=== PATIENT | male | born 1970 | race Caucasian/White ===

== ENCOUNTER 2017-11-12 09:49 | Emergency (ER) | payer OTHER ==
--- NOTE | 2017-11-12 10:01 | CPEKG ---
Heart Rate: 73 RR Interval: 822 P-R Interval: 168 QRSD Interval: 96 QT Interval: 380 QTC Interval: 419 P [place]: 8 QRS [place]: 41 T Wave [place]: 36 EKG Severity - NORMAL ECG - EKG Impression: SINUS RHYTHM Electronically Signed By: Presley Cavanaugh 12-Nov-2017 10:07:38
--- NOTE | 2017-11-12 10:07 | EDPHY ---
H & P Time Seen by Provider: 11/12/17 09:55 HPI/ROS: CHIEF COMPLAINT: Chest pain HISTORY OF PRESENT ILLNESS: Patient was brought in by a co-worker after telling her that he had central chest pain since just after 8:00 a.m. Today. Patient said it is not pleuritic or exertional, does not radiate. Located in the center of his chest and was moderate earlier but almost gone now. No recent injury or trauma. No coughing or hemoptysis. No radiation. REVIEW OF SYSTEMS: Eye: no change in vision ENT: no sore throat Cardiac: HPI no palpitations Pulmonary: no cough or SOB Abdomen: no vomiting, diarrhea, abdominal pain Musculoskeletal: no back pain or leg swelling Skin: no rash Neuro: no headache Constitutional: no fever : no urinary symptoms A comprehensive 10 point review of systems is otherwise negative aside from elements mentioned in the history of present illness. PAST MEDICAL HISTORY: Appendectomy but negative for high cholesterol diabetes or hypertension. Family history: Negative for venous thromboembolism or premature coronary disease, grand father had TN in his 60s Social history: Negative for tobacco or cocaine General Appearance: Alert and conversant, cooperative. Eyes: No scleral icterus. ENT, Mouth: Normal mucous membranes. Respiratory: Normal respiratory effort, breath sounds equal, lungs are clear to auscultation. Cardiovascular: Regular rate and rhythm. Gastrointestinal: Abdomen is soft and non tender. Neurological: Alert, face symmetric, normal motor and sensory in extremities. Skin: Warm and dry, no rashes. Musculoskeletal: No calf tenderness. Psychiatric: Not agitated. Emergency Department course/MDM: More likely muscular or inflammatory. Perc negative for PE. EKG does not show ischemic changes. Plan for chest x-ray and troponin, discharge if initial and 3 hr negative. 1142: Discussed results, heart score discussed, patient is in agreement and would like to be discharged if his 3 hr troponin is negative. Smoking Status: Never smoked Constitutional: Initial Vital Signs Temperature (C) 36.7 C 11/12/17 09:53 Heart Rate 79 11/12/17 09:53 Respiratory Rate 16 11/12/17 09:53 Blood Pressure 154/108 H 11/12/17 09:53 O2 Sat (%) 97 11/12/17 09:53 O2 Delivery Mode Room Air Allergies/Adverse Reactions: Penicillins Allergy (Verified 11/12/17 09:52) Home Medications: Medication Instructions Recorded NK [No Known Home Meds] 11/12/17 Medical Decision Making - Diagnostics EKG Interpretation: 12-lead EKG interpreted by me; official reading is in trace master. My interpretation is sinus rhythm rate 73 normal intervals and no ischemic changes. 2nd EKG at 13 7: 12-lead EKG interpreted by me; official reading is in trace master. My interpretation is normal sinus rhythm rate 69 no ischemic changes. Imaging Results: Imaging Impressions Chest X-Ray 11/12/17 10:05 Impression: Diskoid subsegmental atelectasis versus linear fibrosis at the anterior lung base. Imaging: I viewed and interpreted images myself Differential Diagnosis: Differential diagnosis considered for chest pain including but not limited to myocardial ischemia, aortic dissection, pericarditis, pulmonary embolus, chest wall pain, pleural inflammation and pulmonary infectious causes. - Data Points Laboratory Results: Laboratory Results 11/12/17 10:03 11/12/17 10:03 11/12/17 11/12/17 11/12/17 13:00 10:03 10:03 WBC 5.43 10^3/uL 10^3/uL (3.80-9.50) RBC 5.08 10^6/uL 10^6/uL (4.40-6.38) Hgb 15.7 g/dL g/dL (13.7-17.5) Hct 45.5 % % (40.0-51.0) MCV 89.6 fL fL (81.5-99.8) MCH 30.9 pg pg (27.9-34.1) MCHC 34.5 g/dL g/dL (32.4-36.7) RDW 12.7 % % (11.5-15.2) Plt Count 219 10^3/uL 10^3/uL (150-400) MPV 9.3 fL fL (8.7-11.7) Neut % (Auto) 46.4 % % (39.3-74.2) Lymph % (Auto) 39.4 % % (15.0-45.0) Stewart % (Auto) 10.7 % % (4.5-13.0) Eos % (Auto) 2.2 % % (0.6-7.6) Baso % (Auto) 1.3 % % (0.3-1.7) Nucleat RBC Rel Count 0.0 % % (0.0-0.2) Absolute Neuts (auto) 2.52 10^3/uL 10^3/uL (1.70-6.50) Absolute Lymphs (auto) 2.14 10^3/uL 10^3/uL (1.00-3.00) Absolute Monos (auto) 0.58 10^3/uL 10^3/uL (0.30-0.80) Absolute Eos (auto) 0.12 10^3/uL 10^3/uL (0.03-0.40) Absolute Basos (auto) 0.07 10^3/uL 10^3/uL (0.02-0.10) Absolute Nucleated RBC 0.00 10^3/uL 10^3/uL (0-0.01) Immature Gran % 0.0 % % (0.0-1.1) Immature Gran # 0.00 10^3/uL 10^3/uL (0.00-0.10) Sodium 141 mEq/L mEq/L (135-145) Potassium 4.3 mEq/L mEq/L (3.3-5.0) Chloride 104 mEq/L mEq/L (97-110) Carbon Dioxide 25 mEq/l mEq/l (22-31) Anion Gap 12 mEq/L mEq/L (8-16) BUN 14 mg/dL mg/dL (7-23) Creatinine 1.0 mg/dL mg/dL (0.7-1.3) Estimated GFR > 60 Glucose 91 mg/dL mg/dL (70-100) Calcium 9.4 mg/dL mg/dL (8.5-10.4) Troponin I < 0.012 ng/mL ng/mL < 0.012 ng/mL ng/mL (0.000-0.034) (0.000-0.034) Departure - Departure Disposition: Home, Routine, Self-Care Clinical Impression: Chest pain Condition: Good Instructions: Chest Pain (ED) Additional Instructions: Please follow-up with your primary care doctor or our psychiatric cns in the next 3 days. Referrals: DEAN OLIVER [Other] - As per Instructions Dean Miranda MD [Medical Doctor] - As per Instructions
[2017-11-12 10:10] LABS: PLATELET COUNT 219 10^3/uL (150-400)
--- NOTE | 2017-11-12 13:10 | CPEKG ---
Heart Rate: 69 RR Interval: 870 P-R Interval: 172 QRSD Interval: 98 QT Interval: 404 QTC Interval: 433 P [place]: -11 QRS [place]: 31 T Wave [place]: 31 EKG Severity - NORMAL ECG - EKG Impression: SINUS RHYTHM Electronically Signed By: Presley Cavanaugh 12-Nov-2017 13:30:49
[2017-11-12 13:48] VITALS: BP 138/81
== END 2017-11-12 13:50 | disposition home or self-care (01) ==
DX: R07.9 Chest pain, unspecified (principal); I10 Essential (primary) hypertension; E11.9 Type 2 diabetes mellitus without complications